=== PATIENT | female | born 1945 ===

== ENCOUNTER 2022-10-02 09:22 | Inpatient (IN) | payer OTHER ==
[~2022-10-02] VITALS: Ht 154.9 cm; Wt 79.8 kg
[2022-10-03] MEDS ORDERED: [UNRECOGNIZED DRUG - OTHER] PO (09:10)
[2022-10-03] MEDS ORDERED: METFOR PO (09:11)
[2022-10-03] MEDS ORDERED: SYNTH PO (09:12)
[2022-10-03] MEDS ORDERED: CARVED PO (09:12)
[2022-10-03] MEDS ORDERED: PANADOL PO (09:12)
[2022-10-09] MEDS ORDERED: FOLIC ACID0.8 M1 (16:09)
[2022-10-09] MEDS ORDERED: ACIDOPHILUS 17175 MG (16:09)
[2022-10-09] MEDS ORDERED: MELATONIN-LEMO1 EACH (16:09)
[2022-10-09] MEDS ORDERED: EMERGEN-C 1,01000 MG (16:09)
[2022-10-09] MEDS ORDERED: CANDESARTAN-HC1 EAC2 (16:09)
[2022-10-09] MEDS ORDERED: CARVEDILOL25 M1 (16:09)
[2022-10-09] MEDS ORDERED: METFORMIN HCL500 M1 (16:10)
[2022-10-09] MEDS ORDERED: VITAMIN B-121000 MC2 (16:10)
[2022-10-09] MEDS ORDERED: SYNTHROID137 MCG (16:10)
[2022-10-09] MEDS ORDERED: VITAMIN B-121000 MCG (16:10)
[2022-10-09] MEDS ORDERED: ROSUVASTATIN CA20 MG (16:10)
[2022-10-09] MEDS ORDERED: ACETAMINOPHEN325 M1 (16:11)
[2022-10-13] MEDS ORDERED: GABAPENTIN300 MG PO (10:39)
[2022-10-13] MEDS ORDERED: PAIN RELIEVER500 M2 PO (10:39)
[2022-10-13] MEDS ORDERED: PRE PROTEIN1 EACH PO (10:40)
[2022-10-13] MEDS ORDERED: POLY119PG PO (10:41)
[2022-10-13] MEDS ORDERED: HYOSCYAMINE0.125 M1 SL (10:41)
== END 2022-10-13 14:44 | disposition home or self-care (01) | DRG 329 ==
LOC: O/R 10-09 05:30 → SURH 10-09 05:30
PROVIDERS: ADMIT Surgery; ATTEND Surgery
PROC: 0DJD8ZZ Inspection of Lower Intestinal Tract, Via Natural or Artificial Opening Endoscopic (ICD-10-PCS; 2022-10-09)
PROC: 0W9F4ZZ Drainage of Abdominal Wall, Percutaneous Endoscopic Approach (ICD-10-PCS; 2022-10-09)
PROC: 0DTN4ZZ Resection of Sigmoid Colon, Percutaneous Endoscopic Approach (ICD-10-PCS; principal; 2022-10-09 07:00)
DX: K57.20 Diverticulitis of large intestine with perforation and abscess without bleeding (principal); K65.1 Peritoneal abscess